=== PATIENT | female | born 1935 | race Two or more races ===

== ENCOUNTER 2022-02-13 14:55 | Outpatient (REF) | payer MEDICARE, OTHER, SELFPAY ==
[2022-02-13 16:17] LABS: C Reactive Protein 0.24 mg/dL (< or = 0.50)
[2022-02-13 17:51] LABS: Erythrocyte Sedimentation Rate 24 MM/HR (0-20)
== END 2022-02-13 14:56 | disposition home or self-care (01) ==
LOC: HO.LAB 14:55
PROVIDERS: PCP Internal Medicine; Visit Provider Internal Medicine Rheumatology
DX: M31.6 Other giant cell arteritis (principal); M81.0 Age-related osteoporosis without current pathological fracture; Z87.81 Personal history of (healed) traumatic fracture
CPT/HCPCS: 36415; 85652; 86140; 99202